=== PATIENT | male | born 1965 | race Caucasian/White ===

== ENCOUNTER 2020-03-11 16:48 | Outpatient (CLI) | payer OTHER, SELFPAY ==
--- NOTE | ~2020-03-11 | MR_ITS ---
EXAMINATION: MR shoulder RT wo con DATE: 03/11/2020 17:44 INDICATION: Chronic right shoulder pain. TECHNIQUE: Magnetic resonance imaging (MRI) of the right shoulder was performed without intravenous c ontrast. Sequences included axial PD-weighted FS FSE, coronal oblique PD-weighted FS FSE and T2-weigh flower FS FSE, and sagittal oblique T2-weighted FS FSE and T1-weighted FSE. COMPARISON: None. FINDINGS: Coracoacromial arch: The acromion undersurface is curved in morphology (type II). Subacromial spurring is noted. There is severe acromioclavicular joint osteoarthritis including inferiorly directed osteophytes. There is mil d subacromial/subdeltoid bursitis. Rotator cuff: There is severe supraspinatus and infraspinatus tendinopathy. There is an interstitial tear of supras pinatus tendon at its distal insertion measuring 9 mm anterior to posterior by 2 mm proximal to dista l by 40% tendon thickness. Teres minor tendon is normal. There is an articular sided partial-thicknes s tear of subscapularis tendon. There is no asymmetric fatty atrophy of the rotator cuff muscle yazmin es. Biceps tendon and glenoid labrum: There is a partial tear of biceps tendon. A portion of the tendon is medially displaced from the bici pital groove into the subscapularis tendon tear. There is degeneration of the superior labrum without well-defined tear. Fluid: There is no glenohumeral joint effusion. Bones/cartilage: Glenoid cartilage is normal. Humeral head cartilage is normal. IMPRESSION: 1. Severe rotator cuff tendinopathy with partial-thickness tears of supraspinatus and subscapularis t endons. 2. Partial tear of biceps tendon with medial displacement of a portion of the tendon into the subscap ularis tendon tear. 3. Severe acromioclavicular joint osteoarthritis. 4. Mild subacromial/subdeltoid bursitis. Reviewed, dictated and finalized at location A. IMPRESSION: 1. Severe rotator cuff tendinopathy with partial-thickness tears of supraspinat us and subscapularis tendons. 2. Partial tear of biceps tendon with medial displacement of a portion of the t endon into the subscapularis tendon tear. 3. Severe acromioclavicular joint osteoarthritis. 4. Mild subacromial/subdeltoid bursitis.
== END 2020-03-11 16:49 | disposition home or self-care (01) ==
PROVIDERS: Visit Provider Orthopaedic Surgery
DX: M75.51 Bursitis of right shoulder (principal); M19.011 Primary osteoarthritis, right shoulder
CPT/HCPCS: 73221